=== PATIENT | male | born 1990 | race Caucasian/White ===

== ENCOUNTER 2020-03-06 09:54 | Emergency (ER) | payer OTHER ==
[2020-03-06] MEDS ORDERED: Cephalexin 500 MG Cap PO ONE (09:55)
[2020-03-06] MEDS ORDERED: traMADol 50 MG Tab PO ONE (09:55)
--- NOTE | 2020-03-06 10:40 | EDM.PDOC ---
ED HPI GENERAL MEDICAL PROBLEM - General Chief Complaint: General Stated Complaint: BUMP ON BACK OF HEAD Time Seen by Provider: 03/06/20 10:34 Source of Information: Reports: Patient History Limitations: Reports: No Limitations - History of Present Illness INITIAL COMMENTS - FREE TEXT/NARRATIVE: Tip complains of a swelling on the scalp,painful,started 3 days ago. Radiates to the neck.No fever - Related Data Allergies Allergy/AdvReac Type Severity Reaction Status Date / Time No Known Allergies Allergy Verified 09/27/15 12:43 Home Meds: Home Meds Acetaminophen with Codeine [Tylenol with Codeine #3 Tablet] 300 mg PO DAILY PRN 09/27/15 [History] cephALEXin [Cephalexin] 500 mg PO TID #15 capsule 09/27/15 [Rx] sulfaSALAzine 500 mg PO BID PRN 09/27/15 [History] Social & Family History - Family History Family Medical History: No Pertinent Family History ED ROS GENERAL - Review of Systems Review Of Systems: Comprehensive ROS is negative, except as noted in HPI. ED EXAM, GENERAL - Physical Exam Exam: See Below Exam Limited By: No Limitations General Appearance: Alert, WD/WN, No Apparent Distress Ears: Normal External Exam Ear Exam: Bilateral Ear: Auricle Normal, Canal Normal, TM normal Throat/Mouth: Normal Inspection Head: Normocephalic, Other (Scalp tender,cyst noted the scalp) Neck: Normal Inspection, Lymphadenopathy (L) Respiratory/Chest: No Respiratory Distress Departure - Departure Time of Disposition: 10:39 Disposition: Home, Self-Care 01 Condition: Good Clinical Impression: Scalp cyst - Discharge Information Referrals: Junior Crawford MD [Primary Care Provider] - - Problem List & Annotations (1) Scalp cyst SNOMED Code(s): 408006364 Code(s): L72.9 - FOLLICULAR CYST OF THE SKIN AND SUBCUTANEOUS TISSUE, UNSP Status: Acute Current Visit: Yes - Problem List Review Problem List Initiated/Reviewed/Updated: Yes - Assessment/Plan Plan: It looks like an infection of the scalp. Some cellulitis. I will give him Tramadol and Cephalexin Followup on Monday
[2020-03-06 11:56] VITALS: BP 120/79; PULSE 80
== END 2020-03-06 11:25 | disposition home or self-care (01) ==
LOC: FB.ED 09:54
DX: L72.8 Other follicular cysts of the skin and subcutaneous tissue (principal)
CPT/HCPCS: 99283; A9270

== ENCOUNTER 2020-03-07 22:54 | Emergency (ER) | payer OTHER ==
[2020-03-07 23:09] VITALS: BP 127/91; PULSE 90
--- NOTE | 2020-03-07 23:30 | EDM.PDOC ---
ED HPI GENERAL MEDICAL PROBLEM - General Chief Complaint: Skin Complaint Stated Complaint: HEAD BUMPS Time Seen by Provider: 03/07/20 23:15 Source of Information: Reports: Patient History Limitations: Reports: No Limitations - History of Present Illness INITIAL COMMENTS - FREE TEXT/NARRATIVE: Patient presented to the ED because of head bumps whic was diagnosed yesterday. He was just started on keflex and tonight he noticed some more bumps. Head Pain Score (Numeric/FACES): 4 - Related Data Allergies Allergy/AdvReac Type Severity Reaction Status Date / Time No Known Allergies Allergy Verified 03/06/20 11:08 Home Meds: Home Meds Acetaminophen with Codeine [Tylenol with Codeine #3 Tablet] 300 mg PO DAILY PRN 09/27/15 [History] cephALEXin [Cephalexin] 500 mg PO TID #15 capsule 09/27/15 [Rx] sulfaSALAzine 500 mg PO BID PRN 09/27/15 [History] Ibuprofen 800 mg PO Q8H PRN #30 tablet 03/07/20 [Rx] cephALEXin [Keflex] 500 mg PO Q8H #15 cap 03/07/20 [Rx] predniSONE [Prednisone] 20 mg PO DAILY #5 tablet 03/07/20 [Rx] traMADol [Ultram] 50 mg PO Q8H PRN 03/07/20 [History] Past Medical History Musculoskeletal History: Reports: Other (See Below) Other Musculoskeletal History: spondolytis. Dermatologic History: Reports: Other (See Below) Other Dermatologic History: follicular cyst of the skin(scalp) - Infectious Disease History Infectious Disease History: Reports: Chicken Pox, Influenza Social & Family History - Family History Family Medical History: No Pertinent Family History - Tobacco Use Tobacco Use Status *Q: Current Every Day Tobacco User Years of Tobacco use: 20 Packs/Tins Daily: 1 - Caffeine Use Caffeine Use: Reports: Coffee, Soda - Recreational Drug Use Recreational Drug Use: No ED ROS GENERAL - Review of Systems Review Of Systems: See Below Constitutional: Reports: No Symptoms HEENT: Reports: No Symptoms Respiratory: Reports: No Symptoms Cardiovascular: Reports: No Symptoms Endocrine: Reports: No Symptoms GI/Abdominal: Reports: No Symptoms : Reports: No Symptoms Musculoskeletal: Reports: No Symptoms Skin: Reports: Rash Neurological: Reports: No Symptoms ED EXAM, SKIN/RASH Exam: See Below Exam Limited By: No Limitations General Appearance: Alert, No Apparent Distress Ears: Normal External Exam, Normal Canal Nose: Normal Inspection, Normal Mucosa, No Blood Throat/Mouth: Normal Inspection, Normal Lips, Normal Teeth Head: Atraumatic, Normocephalic Respiratory/Chest: No Respiratory Distress, Lungs Clear, Normal Breath Sounds Cardiovascular: Normal Peripheral Pulses, Regular Rate, Rhythm, No Edema, No Gallop, No JVD, No Murmur, No Rub GI/Abdominal: Normal Bowel Sounds, Soft, Non-Tender Back Exam: Normal Inspection, Full Range of Motion Extremities: Normal Inspection, Normal Range of Motion, Non-Tender Neurological: Alert, Oriented, CN II-XII Intact, Normal Cognition, Normal Gait Psychiatric: Normal Affect, Normal Mood Skin: Warm, Dry, Intact, Normal Color, Rash Course - Vital Signs Last Recorded V/S: Last Vital Signs Temp 36.7 C 03/07/20 23:04 Pulse 90 03/07/20 23:04 Resp 18 03/07/20 23:04 BP 127/91 H 03/07/20 23:04 Pulse Ox 99 03/07/20 23:04 Departure - Departure Time of Disposition: 11:35 Disposition: Home, Self-Care 01 Condition: Good Clinical Impression: Folliculitis - Discharge Information Prescriptions: Ibuprofen 800 mg PO Q8H PRN #30 tablet PRN Reason: Pain cephALEXin [Keflex] 500 mg PO Q8H #15 cap predniSONE [Prednisone] 20 mg PO DAILY #5 tablet Instructions: Folliculitis Referrals: Junior Crawford MD [Primary Care Provider] - Forms: ED Department Discharge Additional Instructions: Please read discharge instructions for folliculitis Take cephalexin 500 mg for 10 days Prednisone 20 mg once daily for 5 days Take ibuprofen 800 mg with tylenol 1000 mg every 8 hours as needed for pain. It take 10-14 days for those bumps to go away Follow up as needed Sepsis Event Note (ED) - Evaluation Sepsis Screening Result: No Definite Risk - Focused Exam Vital Signs: Vital Signs Temp Pulse Resp BP Pulse Ox 03/07/20 23:04 36.7 C 90 18 127/91 H 99
== END 2020-03-07 23:54 | disposition home or self-care (01) ==
LOC: FB.ED 22:54
DX: L73.9 Follicular disorder, unspecified (principal); F17.210 Nicotine dependence, cigarettes, uncomplicated
CPT/HCPCS: 99282

== ENCOUNTER 2021-01-17 05:31 | Emergency (ER) | payer OTHER ==
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
[2021-01-17 06:18] VITALS: BP 142/99; PULSE 114
== END 2021-01-17 05:40 ==
LOC: FB.ED 05:31
DX: F10.129 Alcohol abuse with intoxication, unspecified (principal)
CPT/HCPCS: 99284